=== PATIENT | male | born 1950 | race Two or more races ===

== ENCOUNTER → 2017-02-13 | Outpatient (CLI) | payer MEDICARE ==
[~2017-02-13] MED LIST: /TAMS4CA OR; AMIT10TA2; AMIT10TA2 PO; ASPI325T PO; CALC500T49 PO; METO50TA4 PO; MOBIC PO; MULTIVIT; MULTIVIT PO; OYST500T76; PERC5TAB8; PERC5TAB8 PO; TOPR100T; VICO5TAB; VICO5TAB PO; XANA0.5T; XANA0.5T PO; ZOCO20TA PO; ZYLO300T PO
[2017-02-13 18:37] LABS: CALCIUM OXALATE CRYSTALS SMALL
--- NOTE | 2017-02-13 20:17 | REP ---
Supine abdomen two views: There are calcifications projected over the renal fossae bilaterally. These are nonspecific and could be artifactual calcifications from ingested material within bowel lumen, calcified lymph nodes or renal calculi. The kidneys are obscured by superimposed bowel. There are numerous tiny calcifications in the left upper quadrant, likely splenic granulomas. The bowel gas pattern is normal. There is degenerative disc disease in the lumbar spine. The skeletal structures and soft tissues are otherwise unremarkable. Signed by Jonathan Uribe MD 02/13/2017 03:17 P
== END ==
LOC: M SMT 14:57
PROVIDERS: ATTEND Nurse Practitioner Family
DX: N20.0 Calculus of kidney (principal)
CPT/HCPCS: 74000; 81001; G0463

== ENCOUNTER → 2021-05-04 | Outpatient (REF) | payer MEDICARE ==
[~2021-05-04] MED LIST changes: -/TAMS4CA OR; +FLOM0.4C39 OR; +METO-745; -TOPR100T
[2021-05-04 13:35] LABS: APPEARANCE, URINE CLEAR (CLEAR); BACTERIA, URINE AUTO NEGATIVE (NEGATIVE); BILIRUBIN, URINE AUTO NEGATIVE (NEGATIVE); BLOOD, URINE BLOOD NEGATIVE (NEGATIVE); CALCIUM OXALATE CRYSTALS SMALL; COLOR, URINE YELLOW (YELLOW); GLUCOSE, URINE (UA) AUTO NEGATIVE (NEGATIVE); KETONE, URINE AUTO NEGATIVE (NEGATIVE); LEUKOCYTE ESTERASE, URINE AUTO NEGATIVE (NEGATIVE); NITRITE, URINE AUTO NEGATIVE (NEGATIVE); PROTEIN, URINE AUTO NEGATIVE (NEGATIVE); RBC, URINE AUTO 3 /HPF (0-3); SPECIFIC GRAVITY URINE AUTO 1.014 (1.002-1.035); SQUAMOUS EPITHELIAL CELL UR AU 0 /HPF (0-6); UROBILINOGEN, URINE AUTO 0.2 mg/dL (0.0-2.0); WBC, URINE AUTO 2 /HPF (0-3)
== END ==
LOC: M SMT 13:23
PROVIDERS: ATTEND Nurse Practitioner Family
DX: N20.0 Calculus of kidney (principal)
CPT/HCPCS: 81001; G0463

== ENCOUNTER → 2024-07-13 | Outpatient (CLI) | payer MEDICARE ==
[~2024-07-13] MED LIST changes: +ALLO300T2 PO; +ASPI81TA26 PO; +ATOR40TA75 PO; +BRIM0.2S13 OS; +DORZ2SOL5 OS; +GLIP10TA6 PO; +METO1TAB32 PO; +NETA2.5D2 OU; +NITR0.4S14 SL; +OXYC-517 PO; +SEMA14TA2 PO; +THERTAB52 PO; +TRAZ1TAB10 PO
[2024-07-13 10:35] VITALS: TEMP 98.2
[2024-07-13 12:10] VITALS: BP 127/66; O2SAT 96
== END ==
LOC: M SDC 10:02
PROVIDERS: ATTEND Physician Assistant
DX: S53.492A Other sprain of left elbow, initial encounter (principal); W18.30XA Fall on same level, unspecified, initial encounter; Y92.009 Unspecified place in unspecified non-institutional (private) residence as the place of occurrence of the external cause

== ENCOUNTER → 2025-07-24 | Outpatient (REF) ==
[~2025-07-24] MED LIST changes: +GLIP10TA15 PO; -GLIP10TA6 PO
== END ==
LOC: M LAB REF 16:11
DX: N39.0 Urinary tract infection, site not specified (principal)